=== PATIENT | female | born 1950 ===

== ENCOUNTER 2016-12-10 06:09 | Day surgery (SDC) | payer MEDICARE ==
[2016-12-10 06:55] VITALS: BMI 24.6
[2016-12-10] MEDS ORDERED: Propofol 10 mg/ml Inj (20 ML) ONE ×2 (09:02→09:31)
[2016-12-10] MEDS ORDERED: Midazolam 2 MG/2 ML VIAL ONE (09:02)
--- NOTE | 2016-12-10 09:03 | CP.SDSHP ---
Same Day Surgery H & P - History Proposed Procedure: colonoscopy Pre-Op Diagnosis: abnormal ct colon - Allergies Allergies: Allergies No Known Allergies Allergy (Verified 12/10/16 06:54) - Physical Exam General Appearance: nl Vital Signs: Vital Signs 12/10/16 07:14 Temperature 96.9 F L Pulse Rate 66 Respiratory 19 Rate Blood Pressure 160/88 H O2 Sat by Pulse 98 Oximetry Mental Status: Alert & Oriented x3 Neuro: WNL Heart: WNL Lungs: WNL GI: WNL - {Optional Preform as Required} Abdomen: WNL - Impression Impression: PNET. Abnormal CT colon Pt. Evaluated Today:Candidate for Anesthesia & Procedure: Yes - Date & Time Date: 12/10/16 Short Stay Discharge - Short Stay Discharge Admitting Diagnosis/Reason for Visit: ABNORMAL CT OF COLON Disposition: HOME/ ROUTINE
[2016-12-10 10:05] VITALS: TEMP 98
[2016-12-10 10:12] VITALS: O2SAT 100
[2016-12-10 10:45] VITALS: RESP 16
[2016-12-10 11:36] VITALS: BP 132/81; PULSE 68
== END 2016-12-10 11:26 | disposition home or self-care (01) ==
LOC: C.ENDO 06:09
PROVIDERS: ATTEND Internal Medicine
DX: D12.3 Benign neoplasm of transverse colon (principal); D12.2 Benign neoplasm of ascending colon; K63.5 Polyp of colon; K57.30 Diverticulosis of large intestine without perforation or abscess without bleeding; K64.8 Other hemorrhoids
CPT/HCPCS: 45388; 82948; 88305; 88313; 88342; J2001; J2250; J2704

== ENCOUNTER 2018-08-04 10:33 | Outpatient (CLI) | payer MEDICARE | END 2018-08-04 10:34 | disposition home or self-care (01) | LOC: C.LAB 10:33 | DX: R19.7 Diarrhea, unspecified (principal); K90.9 Intestinal malabsorption, unspecified; R10.13 Epigastric pain; R14.3 Flatulence ==

== ENCOUNTER 2018-08-06 09:53 | Outpatient (CLI) | payer MEDICARE | END 2018-08-06 09:54 | disposition home or self-care (01) | LOC: C.LAB 09:53 | DX: R19.7 Diarrhea, unspecified (principal); K90.9 Intestinal malabsorption, unspecified; R10.13 Epigastric pain; R14.3 Flatulence ==

== ENCOUNTER 2018-08-20 11:03 | Outpatient (CLI) | payer MEDICARE | END 2018-08-20 11:04 | disposition home or self-care (01) | LOC: C.LAB 11:03 | DX: R13.10 Dysphagia, unspecified (principal); D51.9 Vitamin B12 deficiency anemia, unspecified; R19.4 Change in bowel habit; R19.7 Diarrhea, unspecified; D3A.8 Other benign neuroendocrine tumors ==

== ENCOUNTER 2018-08-21 11:58 | Outpatient (CLI) | payer MEDICARE | END 2018-08-21 11:59 | disposition home or self-care (01) | LOC: C.LAB 11:58 | DX: R13.10 Dysphagia, unspecified (principal) ==